=== PATIENT | female | born 1965 | race Caucasian/White ===

== ENCOUNTER 2017-05-29 00:24 | Emergency (ER) | payer OTHER ==
[2017-05-29] MEDS ORDERED: Sodium Chloride 0.9% 10 ML Syringe FLUSH PRN (01:02)
[2017-05-29] MEDS ORDERED: Ondansetron 4 MG/2 ML SDV IVPUSH ONE (01:02)
[2017-05-29] MEDS ORDERED: Ketorolac 30 MG/ML SDV IVPUSH ONE (01:02)
[2017-05-29] MEDS ORDERED: Sodium Chloride 0.9% 1,000 ML IV SCH (01:15)
[2017-05-29] MEDS ORDERED: Iopamidol 755 Mg/ML 100 ML Bottle IV SCH (01:30)
[2017-05-29 03:20] VITALS: BP 140/90
--- NOTE | 2017-05-29 03:44 | ER ---
DATE SEEN: 05/29/2017 CHIEF COMPLAINT: Abdominal pain. HISTORY OF PRESENT ILLNESS: This is a 52-year-old female with pain in the right upper quadrant, started tonight after supper, associated with nausea. Nothing seems to improve it. It does not radiate anywhere. REVIEW OF SYSTEMS: No diarrhea, fever, chest pain, or shortness of breath. ALLERGIES: No known allergies. PAST SURGICAL HISTORY: None. PHYSICAL EXAMINATION: GENERAL: Appears uncomfortable. VITAL SIGNS: Blood pressure is 145/96, pulse is 55, temp 97.7. EARS, NOSE, AND THROAT: Negative. CHEST: Clear. ABDOMEN: Soft. There is tenderness to the right upper quadrant, but no masses or rebound. No rigidity. LABORATORY DATA: Amylase is negative. Troponin 0.01. White cell count 13.1. CT abdomen and pelvis was negative. IMPRESSION: Abdominal pain right upper quadrant. Unknown etiology. PLAN: I suspected gallstones; however, the CT was negative. She might need an ultrasound later. For now, I gave her 1 L of normal saline, 8 mg of Zofran, and Toradol 30 mg IV. Her symptoms dramatically improved and I discharged her home. TIME SEEN: 0030 hours. /[id number] RANDY/XAVIER
== END 2017-05-29 02:40 | disposition home or self-care (01) ==
LOC: FB.ED 00:24
DX: R10.11 Right upper quadrant pain (principal); R11.0 Nausea
CPT/HCPCS: 36415; 74177; 80053; 82150; 84484; 85025; 96361; 96374; 96375; 99284; J1885; J2405; J7040; J7050; Q9967